=== PATIENT | female | born 1995 | race Two or more races ===

== ENCOUNTER 2024-11-13 19:39 | Emergency (ER) | payer MEDICAID, SELFPAY ==
[2024-11-13 19:41] VITALS: BMI 33.0
[2024-11-13 20:27] VITALS: BP 112/81; PULSE 92; RESP 18; TEMP 38.3; O2SAT 98
--- NOTE | 2024-11-13 20:53 | PD.EDURI ---
Upper Respiratory Inf. RME/HPI General Chief Complaint: Flu Like Symptoms Stated Complaint: Cough, r ear ache, sore throat x day Time Seen by Provider: 11/13/24 19:43 Source: patient, RN notes reviewed and old records reviewed Arrival date/time: 11/13/24 19:39 Mode of arrival: ambulatory Limitations: no limitations RME / HPI RME / HPI Narrative: 28yof presents to ED for sore throat, headache and body aches x2 days. Patient c/o fever and right earache. No sick contacts at home. No cough, shortness of breath, nausea/vomiting or dizziness reported. No no medications or treatments since symptom onset. Related Data Previous Rx's ?Medication ?Instructions ?Recorded acetaminophen 500 mg tablet 500 mg PO Q6H PRN fever or pain 11/13/24 (Tylenol Extra Strength) #60 tabs ibuprofen 600 mg tablet 600 mg PO Q6H PRN fever or pain 11/13/24 #30 tabs Review of Systems Review of Systems Systems Reviewed: All systems reviewed, normal except as documented Constitutional Constitutional: Reports chills, Reports fever(s) and Reports headache(s) ENT Ears, Nose, Mouth, and Throat: Denies dizziness, Reports headache(s), Denies nasal congestion and Reports sore throat Cardiovascular Cardiovascular: Denies chest pain and Denies dyspnea Respiratory Respiratory: Denies cough and Denies dyspnea Gastrointestinal Gastrointestinal: Denies nausea and Denies vomiting Musculoskeletal Musculoskeletal: Reports myalgias Neurologic Neurologic: Denies dizziness and Reports headache(s) Past Medical History Past Medical History GASTROINTESTINAL: Positive Obesity Surgical History SURGICAL: Positive Section (x3) Social History SMOKING STATUS: Never smoker SUBSTANCE USE: does not use ALCOHOL: Never ED Exam General Limitations: Present no limitations General appearance: Present alert and in no apparent distress Head Head exam: Present atraumatic and normocephalic Eye Eye exam: Present normal appearance, PERRL and EOMI ENT ENT exam: Present mucous membranes moist, TM's normal bilaterally and other (Mild pharyngeal erythema. No tonsillar swelling or exudate, uvula midline) Neck Neck exam: Present normal inspection and full ROM; Absent meningismus Chest Chest inspection: Present normal inspection and symmetric chest wall rise Respiratory Respiratory exam: Present normal lung sounds bilaterally; Absent respiratory distress Cardiovascular Cardiovascular exam: Present regular rate and normal rhythm Extremities Exam Extremities exam: Present normal inspection and full ROM Neurological Exam Neurological exam: Present alert and oriented X3 Psychiatric Psychiatric exam: Present normal affect and normal mood Skin Skin exam: Present warm, dry, intact and normal color Course Quality Measures none Orders Category Date Time Status Acetaminophen Tab [Tylenol ES Tab] Med 11/13/24 20:58 Discontinued 1,000 mg PO X1 ONE Vital Signs Vital signs: Vital Signs Temperature 100.9 F H 11/13/24 20:27 Pulse Rate 92 11/13/24 20:27 Respiratory Rate 18 11/13/24 20:27 Blood Pressure 112/81 11/13/24 20:27 Pulse Oximetry (%) 98 11/13/24 20:27 Oxygen Delivery Method Room Air 11/13/24 20:27 Upper Respiratory Infection MDM Narrative MDM Narrative:: 28yof presents to ED for sore throat, headache and body aches x2 days. Patient c/o fever and right earache. No sick contacts at home. No cough, shortness of breath, nausea/vomiting or dizziness reported. No no medications or treatments since symptom onset. Patient is nontoxic-appearing, vitals are stable. No evidence of respiratory distress or hypoxia. Encourage rest, fluids, symptomatic treatment, fever management prn. Stable for discharge, RTED precautions given. Patient data External records reviewed:: None (No prior visits) Clinical information provided by:: patient Social determinants that could affect healthcare access:: other (specify) (Poor access to healthcare, unemployed) Patient has the following chronic illnesses:: Obesity How is presenting disease/condition affected by chronic disease/condition?: exacerbated by Evaluation data The following diagnostics were reviewed and interpreted by me:: lab results Lab and/or radiology exams considered but not ordered:: CXR: Lungs clear, no respiratory distress or hypoxia Interpretation Summary: Flu B positive Medications / Prescriptions Medications or Prescriptions considered but not ordered:: No antibiotics or antivirals recommended at this time Medication administrations:: Medication Administration History Discontinued Medications Acetaminophen (Acetaminophen 500 Mg Tablet) 1,000 mg PO X1 ONE Stop: 11/13/24 20:59 Last Admin: 11/13/24 21:09 Dose: 1,000 mg Documented By: Above medication administered in ED Consultations Consultation(s) initiated? (list below): No Diagnosis Upper Respiratory Differential Diagnosis: other (COVID, flu, strep, otitis media, viral illness, URI, bronchitis, pneumonia) Most likely diagnosis given after review of the tests above:: Influenza B Admission Indicated Admission indicated?: not indicated Admission Request Was there a request for admission?: No Disposition Plan Disposition Plan: Discharge Discharge Attestation Discharge Attestation: The patient and all family members were given an opportunity to ask questions and understood the discharge instructions. Discharge instructions specifically effects, indications for sooner follow up or return to the emergency department, and the expected course of current diagnosis. Patient condition: Stable Discharge Plan Plan Patient Disposition: HOME (Self Care) Patient condition on transfer: Stable Prescriptions/Referrals Prescriptions/Med Rec: New ibuprofen 600 mg tablet 600 mg PO Q6H PRN (Reason: fever or pain) Qty: 30 0RF acetaminophen [Tylenol Extra Strength] 500 mg tablet 500 mg PO Q6H PRN (Reason: fever or pain) Qty: 60 0RF Problem List Clinical Impression: Influenza B Patient/Caregiver Discharge Instructions Education Materials: ED Influenza (Adult) Print Language: Martiniquais Stand Alone Forms: [place] Award Info., Work/School Release, Patient Portal Info Letter ISI/JUVE Supervising Physician ISI/JUVE Supervising Physician: Sumit
[2024-11-13 21:09] VITALS: TEMP 38.3
[2024-11-13] MEDS: ACETAMINOPHEN 500 MG TABLET 1000 MG PO (21:09)
== END 2024-11-13 21:10 | disposition home or self-care (01) ==
LOC: SERX 21:20
PROVIDERS: Emergency Provider Emergency Medicine; PCP Family Medicine
DX: J10.1 Influenza due to other identified influenza virus with other respiratory manifestations (principal)
CPT/HCPCS: 87400; 99282; A9270